=== PATIENT | male | born 1960 | race African-American/Black ===

== ENCOUNTER → 2020-08-03 | Outpatient (CLI) | payer OTHER ==
--- NOTE | 2020-08-03 16:30 | RAD ---
EXAM: XR CHEST 2V 08/03/2020 12:53 PM CLINICAL INDICATION: Disability determination COMPARISON: None TECHNIQUE: PA and lateral views of the chest FINDINGS: The heart and mediastinum are normal. Cardiothoracic ratio is 0.36. Lungs are hyperexpande d. No consolidation, pleural effusion, or pneumothorax. Pulmonary vascularity is normal. There are old left posterior eighth and ninth rib fractures. IMPRESSION: No acute cardiopulmonary abnormality. Electronically signed by: Annalisa Verduzco MD (08/03/2020 4:28 PM) [id number]
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
== END ==
LOC: RAD 12:35
DX: M51.37 Other intervertebral disc degeneration, lumbosacral region (principal); M54.2 Cervicalgia; M48.07 Spinal stenosis, lumbosacral region; M25.78 Osteophyte, vertebrae
CPT/HCPCS: 71046; 72100